=== PATIENT | female | born 1975 | race Caucasian/White ===

== ENCOUNTER 2022-10-29 13:55 | Outpatient (CLI) | payer OTHER, SELFPAY ==
[2022-10-30 09:33] LABS: Strep A DNA Probe* NOT DETECTED (Not Detectd)
== END 2022-10-29 13:56 | disposition home or self-care (01) ==
LOC: LONREF 14:59
PROVIDERS: Visit Provider Family Medicine
DX: J02.9 Acute pharyngitis, unspecified (principal)
CPT/HCPCS: 87651

== ENCOUNTER 2023-01-03 08:58 | Outpatient (CLI) | payer OTHER, SELFPAY | END 2023-01-03 08:59 | disposition home or self-care (01) | PROVIDERS: PCP Family Medicine; Visit Provider Family Medicine | DX: Z00.00 Encounter for general adult medical examination without abnormal findings (principal); R05.3 Chronic cough; F41.9 Anxiety disorder, unspecified; Z13.6 Encounter for screening for cardiovascular disorders | CPT/HCPCS: 80053; 80061 ==

== ENCOUNTER 2024-08-24 02:00 | Outpatient (CLI) | payer OTHER, SELFPAY | END 2024-08-24 02:01 | disposition home or self-care (01) | LOC: AMB 08-25 03:16 | PROVIDERS: PCP Family Medicine; Visit Provider Family Medicine | DX: R56.9 Unspecified convulsions (principal) | CPT/HCPCS: A0425; A0427 ==

== ENCOUNTER 2024-08-24 02:45 | Emergency (ER) | payer OTHER, SELFPAY ==
--- OUTSIDE RECORDS SUMMARY | 2024-08-24 02:47 | XMS_ITS | Continuity of Care Document ---
Author Name [facility] Organization [facility] Care Team Providers Care Materials And Processes Manager Name Role Phone [facility] Unavailable Unavailable Social History Combined list of available smoking, tobacco, and other social history from Department of Defense and Veterans Affairs facilities. Social History Type Response Date Comment Sourc e This section is an empty social history section. DoD
[2024-08-24 02:50] VITALS: BP 121/75; PULSE 85; RESP 18; TEMP 36.8; O2SAT 99; BMI 26.6
--- NOTE | 2024-08-24 03:10 | ED.GENADULT ---
HPI - General Adult General Chief complaint: Unspecified Complaint, Adult Stated complaint: seizure like activity Time Seen by Provider: 08/24/24 03:09 History of Present Illness HPI narrative: CC: Seizure Like Activity pt. had 30 second episode of screaming, shaky, and stiff. a&ox4. gcs 15. in triage, c/o dizziness and nausea. denies fevers, n/v, diarrhea. 48-year-old woman presenting to the emergency department via EMS with concern of possible seizure. 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 Arm was up he demonstrates his right arm and she was generally stiff. This lasted perhaps 30 seconds and then just was less alert intermittently of for unspecified period of time maybe about 30 minutes he says later. It seemed like a seizure to him having recognized his sister doing similar in the past. This is a first-time event evidently. She did not note chest pain or rapid heart rate. Does not really have recollection of this event. Has been particularly stressed lately and has a new job related the holidays he offers. Remains a little nauseated. No complaint of headache. Denies history of significant head injury. Notes herself to be tired. Denies drinking alcohol yesterday or taking other substances. Related Data Previous Rx's ?Medication ?Instructions ?Recorded doxycycline hyclate 100 mg capsule 100 mg PO BID #180 caps 09/12/23 buspirone 10 mg tablet 10 mg PO BID #180 tabs 04/08/24 Allergies Allergy/AdvReac Type Severity Reaction Status Date / Time No Known Drug Allergies Allergy Verified 08/24/24 02:57 Review of Systems Status of ROS: Reports: 6 or more systems reviewed and unremarkable except as noted in History and below [facility] Medical History History of right flank pain ?Z87.898 - Personal history of other specified conditions (ICD-10) Encounter for well woman exam without gynecological exam ?Z00.00 - Encounter for general adult medical examination without abnormal findings (ICD-10) Surgical History S/P LEEP ?Z98.890 - Other specified postprocedural states (ICD-10) S/P ?Z98.891 - History of uterine scar from previous surgery (ICD-10) Family History Mother Anxiety disorder OCD (obsessive compulsive disorder) Aunt Breast cancer Paternal Grandmother Breast cancer Father Skin cancer Social History Narrative: , 3 children-1 son, twin daughters, stay at home mom, 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 NAD. Seems a little fatigued. GCS of 15. Moving all extremities without difficulty. She is well-perfused peripherally. No edema. Muela-ea-cygzf is accurate. Eyes with 3 mm pupils briskly reactive and accommodating. No nystagmus. Mouth is without injury than dentition in good repair. Neck is supple nontender. Back nontender. No indication of trauma to her head or elsewhere. Heart in regular rate and rhythm without murmur rub or gallop. Lungs are clear. Const: Vital Signs, click to edit/add: Vital Signs - 24 hr 08/24/24 02:50 08/24/24 04:50 08/24/24 05:02 Temperature 98.2 F Pulse Rate 75 64 Pulse Rate [Left P ulse Oximeter] 85 Respiratory Rate 18 20 20 Blood Pressure 116/85 107/69 Blood Pressure [Ri ght Upper Arm] 121/75 Pulse Oximetry 99 97 96 Oxygen Delivery Me thod Room Air 08/24/24 06:02 Temperature Pulse Rate 67 Pulse Rate [Left P ulse Oximeter] Respiratory Rate 20 Blood Pressure 114/72 Blood Pressure [Ri ght Upper Arm] Pulse Oximetry 97 Oxygen Delivery Me thod Documenting provider has reviewed patient's vital signs: yes Course Vital Signs Vital signs: Initial Vital Signs Temperature 98.2 F 08/24/24 02:50 Temperature Source Temporal Artery Scan 08/24/24 02:50 Pulse Rate 85 08/24/24 02:50 Respiratory Rate 18 08/24/24 02:50 Blood Pressure 121/75 08/24/24 02:50 Blood Pressure Mean 90 08/24/24 02:50 Blood Pressure Position Sitting 08/24/24 02:50 Pulse Oximetry 99 08/24/24 02:50 Oxygen Delivery Method Room Air 08/24/24 02:50 Vital Signs Temperature 98.2 F 08/24/24 02:50 Pulse Rate 85 08/24/24 02:50 Respiratory Rate 18 08/24/24 02:50 Blood Pressure 121/75 08/24/24 02:50 Pulse Oximetry 99 08/24/24 02:50 Oxygen Delivery Method Room Air 08/24/24 02:50 Temperature 98.2 F 08/24/24 02:50 Pulse Rate 67 08/24/24 06:02 Respiratory Rate 20 08/24/24 06:02 Blood Pressure 114/72 08/24/24 06:02 Pulse Oximetry 97 08/24/24 06:02 Oxygen Delivery Method Room Air 08/24/24 02:50 Medications Administered Medications: Discontinued Medications Generic Name Dose Route Start Last Admin Trade Name Freq PRN Reason Stop Dose Admin Sodium Chloride 1,000 mls @ 1,000 mls/hr 08/24/24 03:21 08/24/24 04:51 0.9 % Sodium Chloride 1000 Ml IV 08/24/24 04:20 Infused .Q1H ONE Infusion Ondansetron HCl 4 mg 08/24/24 03:23 08/24/24 03:38 Ondansetron 2 Mg/Ml Inj IVP 08/24/24 03:24 4 mg ONCE ONE Administration Medical Decision Making [facility] Narrative Medical decision making narrative: Does appear that there may have been seizure-like event. Unclear etiology. Has been in good health than emotionally stressed prior to this. Would also evaluate for arrhythmia. Labs. Will place IV for IV hydration, antiemetics and initial screening with basic CT of head. CT head reviewed by me does show small CSF spaces. Radiology over-read below Technique: Noncontrast CT through the head with multiplanar reformats Comparison: None Findings: Mild motion and streak degradation. Brain: No acute hemorrhage. No acute transcortical infarct. No significant mass effect or midline shift. There is apparent hypodensity of the bilateral anterior temporal lobes, favored to be streak artifact but given reported history of seizure-like activity can not exclude cerebral edema. Ventricles: No acute abnormality appreciated. Orbits, sinuses, mastoids: No acute abnormality appreciated. Calvarium and soft tissues: No acute abnormality appreciated. Impression: Examination is mildly degraded by motion and streak artifact. There is apparent hypodensity in the bilateral anterior temporal lobes. This is most favored to be artifactual, but given reported history of seizure-like activity, cerebral edema can not be excluded. Contrast-enhanced MRI would be recommended if there is continued clinical concern for significant intracranial pathology. No other acute abnormality is appreciated. On reassessment is overall improved. Still little tired. I did review this case with Neurology on-call. Concerns are noted related to this seizure-like event occurring in sleep/overnight and paucity of space in the calvarium and then concern of edema. Recommendations are for MRI seizure protocol. Pending findings here if essentially normal then close follow-up with Neurology for continued seizure workup. Pending at change of shift will be MRI with and without of the brain. Medical Records Medical records reviewed: Yes I reviewed the patient's medical records Lab Data Lab results reviewed: Yes I reviewed the patient's lab results Labs: Lab Results 08/24/24 08/24/24 08/24/24 Range/Units 03:25 03:32 04:39 WBC 4.73 (4.50-11.00) K/uL RBC 4.36 (4.00-5.20) m/uL Hgb 13.4 (12.0-16.0) gm/dL Hct 40.5 (33.0-51.0) % MCV 93 (80-100) fL MCH 31 (26-34) pg MCHC 33 (32-36) gm/dL RDW Coeff of Gregoria 11.7 (11.5-15.5) % Plt Count 160 (140-440) K/uL Neut % (Auto) 58.2 (42.0-72.0) % Lymph % (Auto) 31.9 (20-44) % Moore % (Auto) 8.0 (0.0-11.0) % Eos % (Auto) 1.5 (0.0-7.0) % Baso % (Auto) 0.4 (0.0-3.0) % Neut # (Auto) 2.75 (1.7-7.0) K/uL Lymph # (Auto) 1.51 (0.90-2.90) K/uL Moore # (Auto) 0.40 (0.00-0.90) K/UL Eos # (Auto) 0.07 (0.00-0.50) K/uL Baso # (Auto) 0.02 (0.00-0.30) K/uL Abs Immat Gran (auto) 0.00 (0.00-0.30) K/uL Imm/Tot Granulo (auto) 0.0 % Sodium 136 (135-149) mmol/L Potassium 3.7 (3.6-5.1) mmol/L Chloride 104 (96-114) mmol/L Carbon Dioxide 26 (20-32) mmol/L Anion Gap 6 L (7-15) mEq/L BUN 13 (5-24) mg/dL Creatinine 0.7 (0.5-1.5) mg/dL Estimated Creat Clear 83.95 Estimated GFR 106 ml/min Glucose 101 (60-115) mg/dL Lactate 1.9 (0.5-1.9) mmol/L Calcium 8.8 (8.4-10.6) mg/dL Magnesium 2.3 (1.5-2.6) mg/dL Total Bilirubin 0.3 (0.1-1.5) mg/dL Direct Bilirubin 0.2 (0.0-0.5) mg/dL AST 24 (12-35) U/L ALT 19 (4-35) U/L Alkaline Phosphatase 88 (40-150) U/L Lactate Dehydrogenase 184 (120-246) U/L Total Protein 6.4 (6.0-8.3) g/dL Albumin 3.9 (3.3-5.0) g/dL Urine Color Yellow (Yellow) Urine Appearance Slightly Cloudy A (Clear) Urine pH 6.5 (5.0-8.5) Ur Specific [place] 1.025 (1.000-1.030) Urine Protein Negative (Negative) Urine Glucose (UA) Negative (Negative) Urine Ketones Negative (Negative) Urine Blood Negative (Negative) Urine Nitrite Negative (Negative) Urine Bilirubin Negative (Negative) Urine Urobilinogen 0.2 (0.2-1.0) Ur Leukocyte Esterase Negative (Negative) Urine RBC 0-2 (0-2) Urine WBC 0-2 (0-5) Ur Squamous Epith Cells Moderate A (None-Few) Amorphous Sediment Few A (None) Urine Bacteria Few A (None) Urine Mucus Few A (None) Urine Opiates Screen Negative (Negative) Ur Oxycodone Screen Negative (Negative) Urine Methadone Screen Negative (Negative) Ur Barbiturates Screen Negative (Negative) U Tricyclic Antidepress Negative (Negative) Ur Phencyclidine Scrn Negative (Negative) Ur Amphetamines Screen Negative (Negative) U Methamphetamines Scrn Negative (Negative) U Benzodiazepines Scrn Negative (Negative) Urine Cocaine Screen Negative (Negative) U Marijuana (THC) Screen Negative (Negative) Ur Drug Screen Comment See Note Ethyl Alcohol < 0.00 L (0.01-0.03) % Lab Acknowledgement Test Added 08/24/24 Range/Units 08:01 WBC (4.50-11.00) K/uL RBC (4.00-5.20) m/uL Hgb (12.0-16.0) gm/dL Hct (33.0-51.0) % MCV (80-100) fL MCH (26-34) pg MCHC (32-36) gm/dL RDW Coeff of Gregoria (11.5-15.5) % Plt Count (140-440) K/uL Neut % (Auto) (42.0-72.0) % Lymph % (Auto) (20-44) % Moore % (Auto) (0.0-11.0) % Eos % (Auto) (0.0-7.0) % Baso % (Auto) (0.0-3.0) % Neut # (Auto) (1.7-7.0) K/uL Lymph # (Auto) (0.90-2.90) K/uL Moore # (Auto) (0.00-0.90) K/UL Eos # (Auto) (0.00-0.50) K/uL Baso # (Auto) (0.00-0.30) K/uL Abs Immat Gran (auto) (0.00-0.30) K/uL Imm/Tot Granulo (auto) % Sodium (135-149) mmol/L Potassium (3.6-5.1) mmol/L Chloride (96-114) mmol/L Carbon Dioxide (20-32) mmol/L Anion Gap (7-15) mEq/L BUN (5-24) mg/dL Creatinine (0.5-1.5) mg/dL Estimated Creat Clear Estimated GFR ml/min Glucose (60-115) mg/dL Lactate (0.5-1.9) mmol/L Calcium (8.4-10.6) mg/dL Magnesium (1.5-2.6) mg/dL Total Bilirubin (0.1-1.5) mg/dL Direct Bilirubin (0.0-0.5) mg/dL AST (12-35) U/L ALT (4-35) U/L Alkaline Phosphatase (40-150) U/L Lactate Dehydrogenase (120-246) U/L Total Protein (6.0-8.3) g/dL Albumin (3.3-5.0) g/dL Urine Color (Yellow) Urine Appearance (Clear) Urine pH (5.0-8.5) Ur Specific [place] (1.000-1.030) Urine Protein (Negative) Urine Glucose (UA) (Negative) Urine Ketones (Negative) Urine Blood (Negative) Urine Nitrite (Negative) Urine Bilirubin (Negative) Urine Urobilinogen (0.2-1.0) Ur Leukocyte Esterase (Negative) Urine RBC (0-2) Urine WBC (0-5) Ur Squamous Epith Cells (None-Few) Amorphous Sediment (None) Urine Bacteria (None) Urine Mucus (None) Urine Opiates Screen (Negative) Ur Oxycodone Screen (Negative) Urine Methadone Screen (Negative) Ur Barbiturates Screen (Negative) U Tricyclic Antidepress (Negative) Ur Phencyclidine Scrn (Negative) Ur Amphetamines Screen (Negative) U Methamphetamines Scrn (Negative) U Benzodiazepines Scrn (Negative) Urine Cocaine Screen (Negative) U Marijuana (THC) Screen (Negative) Ur Drug Screen Comment Ethyl Alcohol (0.01-0.03) % Lab Acknowledgement Test Added ECG Data Attestation: I personally reviewed and interpreted this ECG as follows: (Baseline interference. Looks to show a normal sinus rhythm. Rate of 68.) Discharge Plan Discharge Clinical Impression: Witnessed seizure-like activity Patient Disposition: Home w/ Parent or Adult Condition: Improved Additional Instructions: Stay well-hydrated. Recommendations are for follow-up with Neurology. I did speak with neurologist Dr. Tika Louise overnight. [facility] [phone] and she is recommending being seen there within 2 weeks for further evaluation. I anticipate them reaching out to you shortly to schedule. If you do not hear from them by tomorrow I would call yourself. Until being re-evaluated by Neurology, recommendations are not to drive. Prescriptions: No Action doxycycline hyclate 100 mg capsule 100 mg PO BID Qty: 180 1RF buspirone 10 mg tablet 10 mg PO BID Qty: 180 0RF Rx Instructions: 1 tab po bid Follow Up/Referrals: Nani Huffman MD [Primary Care Provider] - Stand Alone Forms: [employer] Info Instructions
--- NOTE | 2024-08-24 03:22 | CRLHL7_ITS ---
For Patients: As a result of the Century Cures Act, medical imaging exams and procedure reports are released immediately into your electronic medical record. You may view this report before your referring provider. If you have questions, please contact your health care provider. Indication: Seizure-like activity Technique: Noncontrast CT through the head with multiplanar reformats Comparison: None Findings: Mild motion and streak degradation. Brain: No acute hemorrhage. No acute transcortical infarct. No significant mass effect or midline shift. There is apparent hypodensity of the bilateral anterior temporal lobes, favored to be streak artifact but given reported history of seizure-like activity can not exclude cerebral edema. Ventricles: No acute abnormality appreciated. Orbits, sinuses, mastoids: No acute abnormality appreciated. Calvarium and soft tissues: No acute abnormality appreciated. Impression: Examination is mildly degraded by motion and streak artifact. There is apparent hypodensity in the bilateral anterior temporal lobes. This is most favored to be artifactual, but given reported history of seizure-like activity, cerebral edema can not be excluded. Contrast-enhanced MRI would be recommended if there is continued clinical concern for significant intracranial pathology. No other acute abnormality is appreciated. Please note that all CT scans at this facility use dose modulation, iterative reconstruction, and/or weight-based dosing when appropriate to reduce radiation dose to as low as reasonably achievable. Dictated by Bhavin Corbett MD @ 08/24/2024 3:50:21 AM (Electronically Signed)
--- OUTSIDE RECORDS SUMMARY | 2024-08-24 03:28 | XMS_ITS | Continuity of Care Document ---
Author Name [facility] Organization [facility] Care Team Providers Care Fly Raiser Lockstitch Name Role Phone [facility] Unavailable Unavailable Social History Combined list of available smoking, tobacco, and other social history from [facility] of Defense and Veterans [facility] facilities. Social History Type Response Date Comment Sourc e This section is an empty social history section. DoD
[2024-08-24 03:31] LABS: Lactate* 1.9 mmol/L (0.5-1.9)
[2024-08-24 03:32] LABS: Basophils Absolute Auto 0.02 K/uL (0.00-0.30); Basophils Percent Auto 0.4 % (0.0-3.0); Eosinophils Absolute Auto 0.07 K/uL (0.00-0.50); Eosinophils Percent Auto 1.5 % (0.0-7.0); Hematocrit 40.5 % (33.0-51.0); Hemoglobin* 13.4 gm/dL (12.0-16.0); Lymphocytes Absolute Auto 1.51 K/uL (0.90-2.90); Lymphocytes Percent Auto 31.9 % (20-44); Mean Corpuscular HGB Conc 33 gm/dL (32-36); Mean Corpuscular Hemoglobin 31 pg (26-34); Mean Corpuscular Volume 93 fL (80-100); Neutrophils Absolute Auto 2.75 K/uL (1.7-7.0); Neutrophils Percent Auto 58.2 % (42.0-72.0); Platelet Count* 160 K/uL (140-440); RDW Coefficient of Variation % 11.7 % (11.5-15.5); Red Blood Count 4.36 m/uL (4.00-5.20); White Blood Count* 4.73 K/uL (4.50-11.00)
[2024-08-24 03:38] LABS: Slide Review Reflex No
[2024-08-24 03:38] LABS: Appearance Urine Slightly Cloudy (Clear); Bilirubin Urine Negative (Negative); Blood Urine Negative (Negative); Color Urine Yellow (Yellow); Glucose Urine Negative (Negative); Ketones Urine Negative (Negative); Leukocyte Esterase Urine Negative (Negative); Nitrite Urine Negative (Negative); Protein Urine Negative (Negative); Specific Gravity Urine 1.025 (1.000-1.030); Urobilinogen Urine 0.2 (0.2-1.0); pH Urine 6.5 (5.0-8.5)
[2024-08-24] MEDS: ONDANSETRON 2 MG/ML inj 4 MG IVP (03:38)
[2024-08-24] MEDS: 0.9 % SODIUM CHLORIDE 1000 ml 1,000 ML IV (03:38)
[2024-08-24 03:46] LABS: Amorphous Sediment Urine Few; Bacteria Urine Few; Mucus Urine Few; RBC Urine 0-2 (0-2); Squamous Epithelial Cell Urine Moderate (None-Few); WBC Urine 0-2 (0-5)
[2024-08-24 03:47] LABS: Chloride* 104 mmol/L (96-114)
[2024-08-24 03:48] LABS: Albumin* 3.9 g/dL (3.3-5.0); Potassium* 3.7 mmol/L (3.6-5.1); Sodium* 136 mmol/L (135-149)
[2024-08-24 03:51] LABS: Alkaline Phosphatase* 88 U/L (40-150); Anion Gap 6 mEq/L (7-15); Aspartate Amino Transferase* 24 U/L (12-35); Bilirubin Direct* 0.2 mg/dL (0.0-0.5); Bilirubin Total* 0.3 mg/dL (0.1-1.5); Blood Urea Nitrogen* 13 mg/dL (5-24); Carbon Dioxide* 26 mmol/L (20-32); Creatinine* 0.7 mg/dL (0.5-1.5); Est. Creatinine Clearance* 83.95; Estimated Glomerular Filt Rate 106 ml/min; Glucose* 101 mg/dL (60-115); Total Protein* 6.4 g/dL (6.0-8.3)
[2024-08-24 03:52] LABS: Alanine Aminotransferase* 19 U/L (4-35); Calcium* 8.8 mg/dL (8.4-10.6)
--- NOTE | 2024-08-24 04:48 | CRLHL7_ITS ---
For Patients: As a result of the Century Cures Act, medical imaging exams and procedure reports are released immediately into your electronic medical record. You may view this report before your referring provider. If you have questions, please contact your health care provider. Indication: Seizure-like activity. Technique: Multiplanar, multisequence MRI of the brain, seizure protocol, obtained without and with intravenous contrast. A total of 15ml Dotarem contrast was administered for this exam. Comparison: CT head 08/24/2024 Findings: The ventricles and cortical sulci are age-appropriate in configuration. No midline shift or mass effect, hydrocephalus or herniation. No evidence for recent hemorrhage or infarct. No abnormal extra-axial fluid collection. Scattered punctate FLAIR hyperintense foci are noted within the bilateral frontal lobe white matter. No concerning signal changes within the anterior temporal lobes to correspond to the equivocal hypoattenuation noted on prior CT. No pathologic postcontrast enhancement. Winslow-white matter differentiation is grossly preserved. Hippocampal formations appear symmetric and within normal limits in volume and signal. Midline structures appear within normal limits. Major intracranial vasculature is unremarkable for technique. Age-appropriate bone marrow signal. Lobulated mucosal thickening suggestive of mucous retention cysts/polyps at the left inferior maxillary sinus. No sinonasal air-fluid level or mastoid effusion. Unremarkable orbits. Impression: 1. No evidence of acute intracranial abnormality. No concerning findings in the anterior temporal lobes to correspond to the apparent hypodensity on prior CT. 2. A few punctate FLAIR hyperintense foci are noted in the frontal lobe white matter, nonspecific, with potential etiologies including sequela of migraine headaches, previous trauma, or minimal chronic microangiopathy. Dictated by Anne Bonilla MD @ 08/24/2024 9:28:16 AM (Electronically Signed)
[2024-08-24 04:50] VITALS: BP 116/85; PULSE 75; RESP 20; O2SAT 97
[2024-08-24 04:53] LABS: Lactate Dehydrogenase* 184 U/L (120-246); Magnesium* 2.3 mg/dL (1.5-2.6)
[2024-08-24 04:54] LABS: Ethanol* < 0.00 % (0.01-0.03)
[2024-08-24 04:58] LABS: Amphetamine Screen Urine Negative (Negative); Barbiturate Screen Urine Negative (Negative); Benzodiazepines Screen Urine Negative (Negative); Cannabinoid Screen Urine Negative (Negative); Cocaine Screen Urine Negative (Negative); Methadone Screen Urine Negative (Negative); Methamphetamines Screen Urine Negative (Negative); Opiate Screen Urine Negative (Negative); Oxycodone Screen Urine Negative (Negative); Phencyclidine Screen Urine Negative (Negative); Tricyclic Antidepressant Urine Negative (Negative)
[2024-08-24 05:02] VITALS: BP 107/69; PULSE 64; RESP 20; O2SAT 96
[2024-08-24 06:02] VITALS: BP 114/72; PULSE 67; RESP 20; O2SAT 97
[2024-08-24 06:03] VITALS: PULSE 61; O2SAT 97
[2024-08-24 08:50] LABS: Troponin I* < 0.01 ng/mL (0.01-0.04)
[2024-08-24 10:00] VITALS: BP 128/72; PULSE 76; RESP 16; O2SAT 99
== END 2024-08-24 10:04 | disposition home or self-care (01) ==
PROVIDERS: Family Medicine; Emergency Provider Student in an Organized Health Care Education/Training Program; PCP Family Medicine
DX: R56.9 Unspecified convulsions (principal)
CPT/HCPCS: 36415; 70450; 70553; 80048; 80076; 80306; 81001; 82077; 83605; 83615; 83735; 84484; 85025; 87086; 87186; 93005; 96361; 96374; 99284; 99285; A9575; J2405; J7030

== ENCOUNTER 2024-09-04 07:29 | Outpatient (CLI) | payer OTHER, SELFPAY | END 2024-09-04 07:30 | disposition home or self-care (01) | LOC: NFLDREF 09-09 02:00 | PROVIDERS: PCP Family Medicine; Referring Provider Family Medicine; Visit Provider Family Medicine | DX: Z13.228 Encounter for screening for other metabolic disorders (principal); Z13.220 Encounter for screening for lipoid disorders | CPT/HCPCS: 80053; 80061 ==

== ENCOUNTER 2024-09-14 15:49 | Outpatient (CLI) | payer OTHER, SELFPAY ==
[2024-09-17 03:32] LABS: HPV Source Cervix; HPV, High Risk by TMA Not Detected
[2024-09-24 14:52] LABS: Pap Test Reviewed by Path Done
== END 2024-09-14 15:50 | disposition home or self-care (01) ==
PROVIDERS: PCP Family Medicine; Visit Provider Registered Nurse
DX: Z12.4 Encounter for screening for malignant neoplasm of cervix (principal); Z11.51 Encounter for screening for human papillomavirus (HPV)
CPT/HCPCS: 87624; 87625; 88141; 88142

== ENCOUNTER 2024-10-30 09:29 | Outpatient (CLI) | payer OTHER, SELFPAY | END 2024-10-30 09:30 | disposition home or self-care (01) | LOC: NFLDUCREF 09:30 | PROVIDERS: PCP Family Medicine; Visit Provider Physician Assistant | DX: R05.9 Cough, unspecified (principal) | CPT/HCPCS: 86615 ==

== ENCOUNTER 2025-01-20 15:12 | Outpatient (CLI) | payer OTHER, SELFPAY ==
--- NOTE | 2025-01-20 15:20 | CRLHL7_ITS ---
For Patients: As a result of the Century Cures Act, medical imaging exams and procedure reports are released immediately into your electronic medical record. You may view this report before your referring provider. If you have questions, please contact your health care provider. INDICATION: BILATERAL SCREENING MAMMOGRAM, ASYMPOTMATIC 49 Y/O FEMALE COMPARISON: 12/27/2021, 10/01/2018, 01/03/2016 TECHNIQUE: Digital mammogram in CC and MLO projections including computer-aided detection (CAD) and tomosynthesis. BREAST COMPOSITION: There are scattered areas of fibroglandular density. FINDINGS: No suspicious findings. ASSESSMENT: BI-RADS 1 Negative RECOMMENDATION: Annual screening mammogram. A lay language report of this examination will be provided to the patient. Dictated by: Negro Pryor MD @ 01/21/2025 08:50:03 (Electronically Signed)
== END 2025-01-20 15:13 | disposition home or self-care (01) ==
LOC: MAMMO 15:13
PROVIDERS: PCP Family Medicine; Visit Provider Registered Nurse
DX: Z12.31 Encounter for screening mammogram for malignant neoplasm of breast (principal)
CPT/HCPCS: 77063; 77067